=== PATIENT | male | born 2000 | race African-American/Black ===

== ENCOUNTER 2020-05-14 01:18 | Emergency (ER) | payer BC, SELFPAY ==
[2020-05-14 01:18] VITALS: BP 114/78; PULSE 60; RESP 19; TEMP 37; O2SAT 100
[2020-05-14 03:31] VITALS: BP 109/84; PULSE 55; RESP 19; O2SAT 100
[2020-05-14 04:17] LABS: Basophils Percent Auto 0.5 % (0.2-1.2); Eosinophils Percent Auto 0.3 % (0-4.4); Hematocrit 49.7 % (42.0-52.0); Hemoglobin 16.2 g/dL (14.0-18.0); Immature Granulocyte Absolute 0.01 K/mm3 (0.00-0.031); Immature Granulocyte Percent A 0.2 % (0-0.5); Lymphocytes Absolute Auto 1.75 K/mm3 (0.9-3.2); Lymphocytes Percent Auto 29.8 % (18.3-44.2); Mean Corpuscular HGB Conc 32.6 g/dl (32-36); Mean Corpuscular Hemoglobin 28.3 pg (26-34); Mean Corpuscular Volume 86.7 fl (80-100); Mean Platelet Volume 8.6 fl (7.4-10.4); Monocytes Absolute Auto 0.5 K/mm3 (0.1-0.6); Monocytes Percent Auto 7.8 % (2.6-8.5); Neutrophils Absolute Auto 3.6 K/mm3 (1.3-6.7); Neutrophils Percent Auto 61.4 % (45.5-73.1); Platelet Count Result 371 k/mm3 (150-375); Red Blood Count 5.73 M/mm3 (4.6-6.20); Red Cell Distribution Width 12.4 % (11.5-14.5); White Blood Count 5.9 K/mm3 (4.5-10.0)
[2020-05-14 04:39] LABS: Alanine Aminotransferase 22 U/L (4-50); Albumin Level 4.8 g/dL (3.5-5.1); Alkaline Phosphatase 91 U/L (38-126); Aspartate Amino Transferase 27 U/L (17-59); Bilirubin,Total 0.9 mg/dL (0.2-1.3); Blood Urea Nitrogen 8 mg/dL (9-20); Calcium 9.5 mg/dL (8.4-10.2); Carbon Dioxide 24 mmol/L (22-30); Chloride 103 mmol/L (98-107); Estimated CRCL calculation 81 ml/min; Estimated Glomerular Filt Rate > 60; Glucose 94 mg/dL (75-110); Potassium 3.8 mmol/L (3.4-5.0); Sodium 136 mmol/L (137-145)
[2020-05-14 04:41] LABS: Add Urine Microscopic? YES; Amphetamine Screen Urine Negative (Negative); Appearance Urine Clear (Clear); Barbiturate Screen Urine Negative (Negative); Benzodiazepines Screen Urine Negative (Negative); Bilirubin Urine Negative (Negative); Blood Urine Negative (Negative); Cannabinoid Screen Urine Negative (Negative); Cocaine Screen Urine Negative (Negative); Color Urine Yellow (Yellow); Glucose Urine UA Negative (Negative); Ketones Urine Negative (Negative); Leukocyte Esterase Ur Negative LEU/UL (Negative); Methadone Screen Urine Negative (Negative); Mucus Urine Heavy /lpf; Nitrate Urine Negative (Negative); Opiate Screen Urine Negative (Negative); Phencyclidine Screen Urine Negative (Negative); Protein Urine 1+ mg/dL (Negative); RBC Urine 0-2 /hpf (0-2); Specific Grav Ur 1.032 (1.001-1.035); Squamous Epithelial Cell Urine Rare /hpf (Few); WBC Urine 0-3 /hpf
[2020-05-14 04:51] LABS: Acetaminophen < 10 ug/mL (10-30); Salicylate < 1.0 mg/dL (2-20)
[2020-05-14 05:01] LABS: Ethanol < 10 mg/dL (<10)
--- NOTE | 2020-05-14 06:43 | PC.NURSE ---
[facility] called and recommended pt go to hospital.
--- NOTE | 2020-05-14 06:44 | PC.NURSE ---
[facility] stated that they will be looking for placement for patient.
--- NOTE | 2020-05-14 07:06 | ED.PSYCH ---
HPI - Psych General Chief Complaint: Psychiatric Symptoms <King Sam MD - Last Filed: 05/14/20 07:10> Time Seen by Provider: 05/14/20 07:29 <King Sam MD - Last Filed: 05/14/20 07:10> History of Present Illness HPI Narrative: Patient is a 20-year-old male who presents ER with suicidal ideation. Reports that he was standing on the side of the bridge and was going to jump off but then decided not to. He reports a stressors in his life or the fact that he was kicked out of his father's home and is currently living with his mother. Additionally he has been unable to obtain a job or his own place to live. Reports a couple months ago he tied a rope around his neck to hang himself but cannot bring himself to do it either. Has never been hospitalized for mental illness. <King Sam MD - Last Filed: 05/14/20 07:10> Related Data Allergies/Adverse Reactions: Allergies Allergy/AdvReac Type Severity Reaction Status Date / Time No Known Allergies Allergy Verified 05/14/20 03:25 <King Sam MD - Last Filed: 05/14/20 07:10> Review of Systems Review of Systems: All systems reviewed & are unremarkable except as noted in HPI and below <King Sam MD - Last Filed: 05/14/20 07:10> Constitutional: Constitutional: Denies chills, Denies fever(s) and Denies weakness <King Sam MD - Last Filed: 05/14/20 07:10> ENT: Denies nasal congestion and Denies sore throat <King Sam MD - Last Filed: 05/14/20 07:10> Respiratory: Respiratory: Denies cough and Denies dyspnea <King Sam MD - Last Filed: 05/14/20 07:10> Psychiatric: Psychiatric: Denies anxiety, Reports depression, Denies homicidal ideation and Reports suicidal ideation <King Sam MD - Last Filed: 05/14/20 07:10> PMFSH Past Medical History Medical History: Medical History (Updated 05/16/20 @ 00:00 by Background Daemon) Levy-James syndrome <King Sam MD - Last Filed: 05/14/20 07:10> Surgical History Surgical History: Surgical History (Updated 05/14/20 @ 07:08 by King Sam MD) History of orthopedic surgery Left pinky finger turned into a thumb for the same hand. <King Sam MD - Last Filed: 05/14/20 07:10> Social History Social History: Social History (Updated 05/14/20 @ 07:08 by King Sam MD) Alcohol use details: Had 1 [employer] ice this evening Gender identity (if verbalized by the patient): Male <King Sam MD - Last Filed: 05/14/20 07:10> Exam Narrative: Exam Narrative: GENERAL: Well-appearing, well-nourished, and in no acute distress. HEAD: Normocephalic, atraumatic. EYES: PERRL and EOMI. CHEST: Clear to auscultation. No respiratory distress. HEART: Regular rate and rhythm. Normal peripheral pulses. ABDOMEN: Soft, nontender, nondistended. EXTREMITIES: Congenital deformities of bilateral upper extremities. SKIN: Warm, dry, no rash. NEURO: Alert and oriented x3. PSYCH: Flat affect, endorses suicidal ideation, does not seem to be responding to internal stimuli. <King Sam MD - Last Filed: 05/14/20 07:10> Course Course Emergency Course: Patient will have to be assessed by [facility] worker. Pt stable and cooperative. <King Sam MD - Last Filed: 05/14/20 07:10> Vital Signs Vital signs: Vital Signs Temperature 37.0 C 05/14/20 01:18 Pulse Rate 60 05/14/20 01:18 Respiratory Rate 19 05/14/20 01:18 Blood Pressure 114/78 05/14/20 01:18 Pulse Oximetry 100 05/14/20 01:18 Temperature 37.1 C 05/15/20 06:23 Pulse Rate 55 L 05/15/20 11:42 Respiratory Rate 18 05/15/20 11:42 Blood Pressure 110/80 05/15/20 11:42 Pulse Oximetry 100 05/15/20 11:42 <King Sam MD - Last Filed: 05/14/20 07:10> Vital Signs Temperature 37.0 C 05/14/20 01:18 Pulse Rate 60 05/14/20 01:18 Respiratory Rate 19 05/14/20 01:18 Blood Pressure 114/78
--- NOTE | 2020-05-14 07:47 | PC.NURSE ---
Pt care assumed at this time, report given by ELISE Chappell. [facility] has been called and patient is awaiting [facility] to find placement.
--- NOTE | 2020-05-14 07:50 | PC.NURSE ---
UA and UDS collected during downtime, results in paper chart.
[2020-05-14 09:01] VITALS: BP 96/57; PULSE 82; RESP 17; TEMP 36.7; O2SAT 100
--- NOTE | 2020-05-14 09:14 | PC.NURSE ---
Chart facced at [id number]
[2020-05-14 13:05] VITALS: BP 113/67; PULSE 91; RESP 19; O2SAT 100
[2020-05-14 14:35] LABS: SARS-CoV-2 RNA PCR Negative
--- NOTE | 2020-05-14 19:05 | PC.NURSE ---
just informed that [facility] cannot transport pt tonight due to avail crew. will transport tomorrow at 1130. will try to come earlier if possible
--- NOTE | 2020-05-14 19:14 | PC.NURSE ---
pt updated that no transport to accepting facility until tomorrow at approx 1130. pt offered food and fluids but continues to deny need/desire
--- NOTE | 2020-05-14 19:32 | PC.NURSE ---
Called [facility] to request transport. [facility] declined
--- NOTE | 2020-05-14 20:00 | PC.NURSE ---
[facility] called, pt accepted, will sched transport for 11:30 in am.
--- NOTE | 2020-05-14 20:23 | PC.NURSE ---
no change in pt cond. sitter at bedside. pt resting quietly.
[2020-05-14 22:16] VITALS: BP 110/68; PULSE 64; RESP 16; TEMP 36; O2SAT 98
[2020-05-15 06:23] VITALS: BP 104/86; PULSE 43; RESP 14; TEMP 37.1; O2SAT 100
[2020-05-15 11:42] VITALS: BP 110/80; PULSE 55; RESP 18; O2SAT 100
== END 2020-05-15 11:47 ==
PROVIDERS: Emergency Medicine; Emergency Provider Emergency Medicine
DX: F32.9 Major depressive disorder, single episode, unspecified (principal); R45.851 Suicidal ideations; Z11.59 Encounter for screening for other viral diseases
CPT/HCPCS: 36415; 80053; 80307; 81001; 84443; 85025; 87635; 99285; C9803; U0003